=== PATIENT | male | born 1950 | race Caucasian/White ===

== ENCOUNTER 2018-07-02 05:56 | Day surgery (SDC) | payer MEDICARE ==
[2018-07-02] MEDS ORDERED: DIPRIVAN 200 MG/20 ML IV ONE (05:57)
[2018-07-02] MEDS ORDERED: Lactated Ringers 1,000 ML IV SCH (06:00)
[2018-07-02 09:05] VITALS: O2SAT 99
--- NOTE | 2018-07-02 09:10 | OP ---
SURGERY DATE/TIME: 07/02/2018822 PREOPERATIVE DIAGNOSIS: History of colon polyps. POSTOPERATIVE DIAGNOSIS: Splenic flexure polyp. PROCEDURE: Colonoscopy with polypectomy. SURGEON: Dr. Funk. ANESTHESIA: MAC. Medications given by anesthesia department. HISTORY: The patient is a 67 year-old white male patient presenting now for surveillance examination. The patient reports he has had several colonoscopies in the past with polyps removed several times. He represents now five years from previous colon exam. He was reappraised of the risks of the procedure including the risk of perforation, phlebitis, untoward reaction to medication, bleeding and missed lesions. The patient verbalized his understanding and desired to have the procedure performed. DESCRIPTION OF PROCEDURE: The patient was given the medications by the anesthesia department. He had continuous pulse oximetry, ECG monitoring, intermittent blood pressure monitoring and tidal CO2 monitoring during the examination. He was placed in the left lateral decubitus position. A digital rectal examination was performed and revealed normal anal sphincter tone and no masses and normal prostate. The flexible Olympus pediatric colonoscope was used to intubate the rectum. A view of the colon was developed sequentially to the cecum. Upon insertion and withdrawal was noted a sessile polyp measuring approximately 0.75 to 1 cm in dimension. It was removed using hot polypectomy snare and followed up with cold biopsy of the region to destroy the lesion. We also noted an area of previous tattooing which appeared to be free of any lesions. The scope was removed from the patient who tolerated the procedure well and was sent back to OP recovery in good condition. The prep was noted to be good.
[2018-07-02 09:23] VITALS: BP 130/65; PULSE 60
== END 2018-07-02 09:15 | disposition home or self-care (01) ==
LOC: SDC 05:56
PROVIDERS: ATTEND Family Medicine
DX: K63.5 Polyp of colon (principal); Z86.010 Personal history of colon polyps; E11.9 Type 2 diabetes mellitus without complications; Z79.4 Long term (current) use of insulin; I10 Essential (primary) hypertension; E78.5 Hyperlipidemia, unspecified
CPT/HCPCS: 82962; 88305; 94250; J2704